=== PATIENT | female | born 1975 | race Caucasian/White ===

== ENCOUNTER 2016-07-10 15:29 | Emergency (ER) | payer OTHER ==
[~2016-07-10] VITALS: Ht 165.1 cm; Wt 59.1 kg
[~2016-07-10 15:29] MED LIST: BEN25 PO
[2016-07-10 15:35] VITALS: BP 123/77; PULSE 97; RESP 16; O2SAT 96
--- NOTE | 2016-07-10 17:16 | ED.REPORT ---
HPI-Extremity Problem Upper Date of Service Jul 10, 2016 ED Provider: Deepthi Carrero History of Present Illness: cut arm to the tendon while washing a bowl and the bowl broke. happened around 230 today. up to date on tdap. primary care is leona. 01/01 pain Nursing Notes Stated Complaint: RT HAND LACERATION Chief Complaint: Extremity Trauma Nursing Notes Reviewed: Yes Allergies: Coded Allergies: Penicillins (Verified Allergy, Severe, 07/10/16) morphine (Verified Allergy, Intermediate, rash, swelling at IV site, ) Sulfa (Sulfonamide Antibiotics) (Verified Allergy, Unknown, 07/10/16) Uncoded Allergies: WASPS AND BEES (Allergy, Unknown, 03/16/15) Scheduled diphenhydrAMINE-Expunged Drug, Do Not Renew! (diphenhydrAMINE-Expunged Drug, Do Not Renew!) 25 Mg Capsule 25 MG PO Q6H FOR ITCHING General Time Seen by MD: 17:10 Chief Complaint Arm injury right Hx Obtained From: Patient Onset Occurred: 1 - 4 hours ago Symptom Duration: Since onset Caused by: Accidental Context: Occurred at: Home injury Past Medical History Past Medical History Notes: has toddler at home that is 16 months old, tdap with that 07/10/2016 Past Medical History Denies: Asthma, Diabetes mellitus, Hypertension Past Surgical History oral surgery Smoking History Never Smoker Social History Alcohol Use: Denies alcohol use Drug Use: Denies drug use Occupation no work or school at this time 07/10/2016 Ambulatory Status Independent Review of Systems Basic Review of Systems Eyes: Vision NL, No discharge ENT: Hearing NL, No pain, No nasal congestion, No pharyngeal pain Respiratory: No shortness of breath, No cough, No wheeze Cardiovascular: No chest pain, No dyspnea on exertion, No orthopnea, No parox noct dyspnea, No palpitations GI: No abdominal pain, No anorexia, No nausea, No vomiting : No dysuria, No frequency Hematologic: No bleeding, No bruising Endocrine: No cold intolerance, No heat intolerance, No weight gain, No weight loss Allergy / Immune: No allergy Psychiatric: Normal thought content Physical Exam Initial Vital Signs Vital Signs (First) Date Time Temp Pulse Resp B/P Pulse Ox O2 Delivery O2 Flow Rate FiO2 07/10/16 15:35 37.3 97 16 123/77 96 Room Air Initial VS: Reviewed, Vital signs normal General/Constitutional: Well-developed, Well-nourished Head / Eyes: Atraumatic, Normocephalic, PERRL ENT: Mucous membranes moist, Conjunctiva normal, No scleral icterus Neck: Supple, Non-tender, Full range of motion Respiratory: Breath sounds normal, Clear to auscultation, No respiratory distress Cardiovascular: Regular rate & rhythm, Heart sounds normal, Intact distal pulses Abdomen / GI: Soft, Non-tender, No guarding, No rebound, No distention Back: No CVA tenderness Lymphatic: No lymphadenopathy Lower Extremities: Vascular intact, Neuro intact, No swelling, No tenderness Skin: Warm, Dry, No cyanosis Neurologic: Alert, Oriented, Nonfocal Psychiatric: Mood/affect normal, Behavior normal, Normal thought content General/Constitutional: Awake, Alert, No acute distress, Well appearing, Well developed, Well hydrated, Well nourished, Cooperative, Not toxic appearing Neck: Atraumatic, Supple, No meningismus Respiratory / Chest: Atraumatic, Breath sounds NL, Breath sounds = bilat Cardiovascular: Heart rate NL, Regular rhythm, Heart sounds NL, No gallop 2 cm laceration on inner aspect, of right forearm Wrist / Hand: Atraumatic, Inspection NL, Full range of motion full range of motion of finger and wrist. sensation intact distally Procedures Laceration Management Laceration Management: wound explored before closure, muscle fascia has laceration, tendon intact. Repair done by med student, supervised directly by me. Time: 17:45 Procedure Performed by: Allied health pract Consent / Setup / Site Prep: Consent from patient, Hand hygiene observed, Stand sterile technique Location of Wound: right forearm Wound Length: 2 cm Local Anesthesia: Lidocaine 1%, 5cc, 27g needle Digital Block: No Wound Preparation: Normal saline Debridement: None Irrigation: 150 cc Foreign Body Explore / Removal: Explored for foreign body Repair Skin: ___ O (5), Nylon # Sutures - Skin: 6 Closure Layers: 1 Suture Technique: Simple Post-Procedure / Complications: Antibiotic oint applied, Dressing applied, No complications, Condition improved, Tolerated procedure well, Patient stable Discharge & Departure Impression: Primary Impression: Laceration Disposition: Home Patient Instructions: Laceration (ED) Additional Instructions: The laceration has been repaired with 6 sutures. Keep dry for 24 hours, briefly wet after that. Sutures out in 10 days here. Apply bacitracin and bandaid to the site daily. Good luck on your upcoming trip! Use ibuprofen 800 mg up to 3 times a day as needed for swelling. Can use hydrocodone 1 at night as needed for severe unrelenting pain. No indication for antibiotics at this time. Referrals: Adriano Medina ND (PCP) EDSupervising Provider for APC: Johann Rashid MD copies to: Adriano Medina ND, Sue ARNP Jul 10, 2016 17:16
--- NOTE | 2016-07-10 17:19 | ED.REPORT ---
HPI-Extremity Problem Upper Date of Service Jul 10, 2016 ED Provider: Doc,Ed MD Nursing Notes Stated Complaint: RT HAND LACERATION Chief Complaint: Extremity Trauma Allergies: Coded Allergies: Penicillins (Verified Allergy, Severe, 07/10/16) morphine (Verified Allergy, Intermediate, rash, swelling at IV site, ) Sulfa (Sulfonamide Antibiotics) (Verified Allergy, Unknown, 07/10/16) Uncoded Allergies: WASPS AND BEES (Allergy, Unknown, 03/16/15) Scheduled diphenhydrAMINE-Expunged Drug, Do Not Renew! (diphenhydrAMINE-Expunged Drug, Do Not Renew!) 25 Mg Capsule 25 MG PO Q6H FOR ITCHING General Time Seen by MD: 17:10 Physical Exam Initial Vital Signs Vital Signs (First) Date Time Temp Pulse Resp B/P Pulse Ox O2 Delivery O2 Flow Rate FiO2 07/10/16 15:35 37.3 97 16 123/77 96 Room Air Discharge & Departure Referrals: Adriano Medina ND (PCP) Deepthi Carrero Jul 10, 2016 17:19
== END 2016-07-10 19:09 | disposition home or self-care (01) ==
LOC: SED 15:29
DX: S51.811A Laceration without foreign body of right forearm, initial encounter (principal); W26.8XXA Contact with other sharp object(s), not elsewhere classified, initial encounter; Y93.G1 Activity, food preparation and clean up; Y92.009 Unspecified place in unspecified non-institutional (private) residence as the place of occurrence of the external cause; Y99.8 Other external cause status; Z88.0 Allergy status to penicillin; Z88.2 Allergy status to sulfonamides; Z88.5 Allergy status to narcotic agent

== ENCOUNTER 2016-07-22 07:36 | Emergency (ER) | payer OTHER ==
[2016-07-22 07:39] VITALS: BP 112/71; PULSE 89; RESP 15; O2SAT 98
== END 2016-07-22 07:54 | disposition home or self-care (01) ==
LOC: SED 07:36
DX: Z48.02 Encounter for removal of sutures (principal)